=== PATIENT | female | born 1955 | race Caucasian/White ===

== ENCOUNTER 2023-07-16 16:00 | Emergency (ER) | payer MEDICARE, BC, SELFPAY ==
[2023-07-16 16:03] VITALS: BP 135/84
--- NOTE | 2023-07-16 19:04 | EDRN ---
Discharge instructions given to patient by KIT Martinez. Patient did not want to wait for instructions to be reviewed with her. angry that they needed to wait for written instructions. Patient not willing to wait to have repeat vital
signs taken.
--- NOTE | 2023-07-16 19:51 | ED.GENMED ---
History of Present Illness
General
Chief Complaint: Facial Problem
Source: patient
Exam Limitations: none
Time Seen by Provider: 07/16/23 17:49
Nursing documentation reviewed up to this point in time: agreed with
Travel History
Have you had any contact with someone who has COVID-19?: No
Do you have any symptoms of coronavirus? Fever > 100 degrees, chills, cough, shortness of breath, sore throat, loss of taste or smell, muscle aches, or headache?: No
History of Present Illness
History of Present Illness:
Patient states she was gardening and was hit in the face by a tree branch. No LOC. Complains of pain and swelling to nose. Injury occurred this afternoon. Brought to ED by spouse for eval
Past History
Past History
ED Past Medical History: None
ED Past Surgical History: None
Review of Systems
Review of Systems
Allergies reviewed?: Yes
All Other Systems: ROS reviewed and negative except as documented in HPI and ROS
Constitutional: Reports no symptoms
EENT: Reports no symptoms
Musculoskeletal: Reports joint pain (pain to nose)
Skin: Reports other (swelling and bruising to nose)
Neurological: Reports no symptoms
Psychiatric: Reports no symptoms
Phy Exam
General Physical Exam
General Presentation: well appearing and no apparent distress
General age: appears stated age
General Skin: warm and dry
General Habitus: normal
ENT Exam
ENT Exam: EOMI
Pedro Coma Scale
Eye Opening: Spontaneous
Verbal Response: Oriented
Motor Response: Obeys Commands
GCS Total Score: 15
Musculoskeletal Exam
Musculoskeletal Exam: neuro vasc intact
Skin Exam
Skin Exam: normal color, warm/dry and no rash
Psychiatric Exam
Psychiatric Exam: normal mood/affect
Course
Orders/Labs/Results
Orders:
Orders
07/16/23 17:54
Nasal Bones, complete 3 Views [CR Nasal Bones Comp Min 3 View] Urgent
Comment:
Reason For Exam: trauma
Vital Signs
Initial and Last Documented VS:
Initial Vital Signs
Temp Pulse Resp BP Pulse Ox
98.2 F 76 20 135/84 96
07/16/23 16:03 07/16/23 16:03 07/16/23 16:03 07/16/23 16:03 07/16/23 16:03
Last Documented Vital Signs
Temp Pulse Resp BP Pulse Ox
98.2 F 76 20 135/84 96
07/16/23 16:03 07/16/23 16:03 07/16/23 16:03 07/16/23 16:03 07/16/23 16:03
*Radiology
Radiology exam reviewed: radiology read reviewed
*Pulse Oximetry
Patient hypoxic: no
*Critical Care Note
Total Time (30-74mins, 75-104mins- exclusive of procedures): Not Applicable
ED Attending Note
-
Portions of this chart may have been created with voice recognition software.� Occasional wrong word or��sound alike� substitutions may have occurred due to the inherent limitations of voice recognition software.
Discharge Plan
Departure
Patient Disposition: Home (Routine Discharge)
Date of Disposition: 07/16/23
Time of Disposition: 18:57
Patient with high blood pressure during this ER visit?: No
Condition: Good
Covid-19: Not Applicable
Discharge Problem:
Head injury, Contusion of face
Instructions: Head Injury in Adults (DC), Contusion (DC), Using Cold for Pain
Referrals:
Amanda Felix, DO [Family Provider] - Follow up in 2-3 days
Interventions
Interventions:
*General Assessment Last Done: 07/16/23 18:03
ED- Fall Risk Assessment Last Done: 07/16/23 18:03
*ED COVID-19 Vaccine History Last Done: 07/16/23 18:03
*Nursing Disposition Last Done: 07/16/23 19:06
ED- Neurological Assessment Last Done: 07/16/23 18:03
ED-Skin Assessment Last Done: 07/16/23 18:03
Discharge Date and Time
Discharge Date/Time: 07/16/23 19:05
Print Language: SPANISH
Musculoskeletal Injury Exam
Musculoskeletal Injury Exam
Nose:
Pain with Movement?: Moderate
Tender to palpation?: Moderate
Soft tissue swelling?: Moderate
External deformity and angulation?: None
Joint effusion?: None
Contusion?: Moderate
Hematoma-local bleeding into tissue?: Moderate
Crepitus with movement?: No
Joint instability?: No
Malalignment/deformity?: No
Distal skin color and temperature: normal-warm & good color
Capillary Refill: normal
Normal distal neurovascular exam?: Yes
== END 2023-07-16 19:05 | disposition home or self-care (01) ==
LOC: EMR 16:00
PROVIDERS: EMERGENCY PHYSICIAN Emergency Medicine; FAMILY PHYSICIAN Family Medicine
DX: S09.90XA Unspecified injury of head, initial encounter (principal); S00.83XA Contusion of other part of head, initial encounter; W22.8XXA Striking against or struck by other objects, initial encounter
CPT/HCPCS: 99283; 70160